=== PATIENT | male | born 1960 | race Two or more races ===

== ENCOUNTER → 2016-02-23 | Day surgery (SDC) | payer OTHER ==
[~2016-02-23] MED LIST: BUPIVACAINE/EPINEPHRINE 0.25% PF 30 ML VIAL ONE; DILA4TAB10 PO; HYDR-3533 PO; KETOROLAC TROMETHAMINE 30 MG/ML (IVP) VIAL IV PUSH ONE; LACTATED RINGER'S 1000 ML INJ 1,000 ML ONE; MEPERIDINE HCL 50 MG/ML VIAL ONE; MIDAZOLAM HCL 2 MG/2 ML VIAL ONE; MS C60TA4 PO; NORT25CA PO; OMEP20TA PO; ONDANSETRON HCL 4 MG/2 ML VIAL IV PUSH ONE; PROPOFOL 200 MG/20 ML AMP IV ONE; ceFAZolin 2 GM PREMIX 50 ML ONE
--- NOTE | 2016-02-27 06:19 | TN ---
cc: DEMETRIO MENDEZ MD DATE OF SURGERY 02/23/2016 PREOPERATIVE DIAGNOSIS Left inguinal hernia. POSTOPERATIVE DIAGNOSIS Left inguinal hernia. PROCEDURE PERFORMED Left inguinal hernia repair laparoscopically with mesh, TEPP. SURGEON Dr. Demetrio Mendez BARYTES GRINDER Yola Sandoval, needed for assistance due to the complex nature of the laparoscopic case. Yola was necessary to insist for camera control and retraction. ANESTHESIA GETA. IV FLUIDS 900 cc. ESTIMATED BLOOD LOSS 5 cc. DRAINS None. COMPLICATIONS None. WOUND CLASSIFICATION Clean. SPECIMENS None. FINDINGS Left inguinal hernia, reducible, indirect. INDICATION The patient is a 55-year-old male who presents with a left inguinal hernia. He was seen in the office for evaluation with concerns due to enlarging size and pain. Therefore decision was made for a laparoscopic left inguinal hernia repair. This was discussed with the patient in detail. He status understanding and would like to proceed. DETAILS OF PROCEDURE The patient was taken to the operating suite, placed in supine position. He was prepped and draped in the usual sterile fashion after induction of general endotracheal anesthesia. Brief time-out done stating correct patient, procedure and surgical site. We were all in agreement with this. Attention directed to the umbilicus. Local anesthetic injected. A small stab/shahnaz incision made with an 11 blade. Further dissection done with a hemostat and [employer]; this was done to the anterior rectus fascia on the left. A small shahnaz incision was made on the anterior fascia. The rectus muscle was identified. Dissection with a hemostat and S-retractor posteriorly to the rectus muscle and the anterior peritoneum. Next, balloon dissector was placed through the rectus posteriorly and anterior to the peritoneal fascia. This was done toward the pubic symphysis. The balloon was then insufflated, 30 pumps under direct visualization with a 10-mm scope. The balloon showed good dissection of the preperitoneal space to the left peritoneal space. The balloon was then removed and stay suture was placed on the anterior fascia with 0 Vicryl. Bryan trocar was then obtained and placed under direct visualization. The balloon was inflated to keep the trocar in place. The preperitoneal space was then insufflated to 11 mm pneumoperitoneum. The scope was reinserted, two other trocars were placed in midline, one suprapubic and one in between this. [place] and [place] graspers were used to completion of the dissection of the properitoneal space. Epigastric vessels were noted anterior and adherent to the abdominal wall. Lateral portion was dissected with the graspers. The hernia sac was identified and tracked along the gonadal vessels and vas deferens and entering the indirect space. This was grasped and retracted and reduced. The cord structures were dissected free from the hernia sac. The hernia sac was then reduced and then placed back into the peritoneal cavity. The gonadal vessels were then elevated and a posterior window was created to these. The pubic symphysis was identified and dissected clear. An adequate landing zone was done in order to place our mesh. An Atrium 6 x 6 mesh was obtained and cut to appropriate size. The mass was then inserted through Bryan trocar. The [place] dissector was used and the [place]y was used to position the mesh in place. Tackers were placed medially and laterally in order to secure the mesh in place and recreate the inguinal ring. Next, the cut portion of the mesh was obtained and placed through the port and fashioned to the first mass with a tacker. Once we were satisfied with this, local anesthetic was then injected. Next, the abdomen was desufflated. Next, trocars were removed. The anterior fascia was reapproximated with a [id number] 0 Vicryl. Next, 4-0 Monocryl was used for subcuticular suture. Sterile dressings were then placed, benzoin and Steri-Strips. The patient tolerated the procedure well. There is no intraoperative complication. The patient was extubated and taken stable to the PACU. FINDINGS Left inguinal hernia, small, indirect, lateral to the epigastric vessels. MD NANETTE Courtney/REGINE /10:44 PM /6:06 AM
== END | disposition home or self-care (01) ==
LOC: ESDC 09:17
PROVIDERS: ATTEND Surgery
DX: K40.90 Unilateral inguinal hernia, without obstruction or gangrene, not specified as recurrent (principal)
CPT/HCPCS: 00840; 49650; J0690; J1885; J2175; J2250; J2405; J3010; J7120; C1727; C1781

== ENCOUNTER → 2016-06-06 | Day surgery (SDC) | payer OTHER ==
[~2016-06-06] MED LIST changes: +BUPIVACAINE LIPOSOME PF 1.3% 20 ML VIAL ONE; +BUPIVACAINE/EPINEPHRINE 0.25% PF 10 ML VIAL ONE; -BUPIVACAINE/EPINEPHRINE 0.25% PF 30 ML VIAL ONE; +LIDOCAINE 1%/EPINEPHrine 1:100,000 SOLN 20 ML VIAL ONE; +MEPERIDINE HCL 25 MG/ML VIAL ONE; -MEPERIDINE HCL 50 MG/ML VIAL ONE; -PROPOFOL 200 MG/20 ML AMP IV ONE; +PROPOFOL 500 MG/50 ML BTL IV ONE; +SODIUM CHLORIDE 0.9% 20 ML VIAL ONE
--- NOTE | 2016-06-06 18:37 | TN ---
cc: DEMETRIO MENDEZ MD DATE OF SURGERY: 06/06/2016 PREOPERATIVE DIAGNOSIS Chronic left groin pain status post laparoscopic inguinal hernia repair. POSTOPERATIVE DIAGNOSIS Chronic left groin pain status post laparoscopic inguinal hernia repair. PROCEDURE PERFORMED 1. Left ilioinguinal neurectomy. 2. Removal of cord lipoma. 3. Left groin exploration. SURGEON Dr. Demetrio Mendez. CLINICAL RESEARCHER Dr. Arriaga. ANESTHESIA GETA. IV FLUIDS See anesthesia sheet. ESTIMATED BLOOD LOSS 5 cc. DRAINS None. COMPLICATIONS None. WOUND CLASSIFICATION Clean. SPECIMENS Ilioinguinal nerve. INDICATION The patient is a 55-year-old male, history of left inguinal hernia, back in February it was repaired laparoscopically. The patient presented with complaints of focal tenderness with radiation in the left groin. He underwent in-office injections with some improvement but pain recurred. Decision was made to explore his groin and ligate his ilioinguinal nerve. This was discussed in detail with the patient. The patient states understanding and agreed and would like to proceed. DETAILS OF PROCEDURE The patient was taken to the operative suite and placed in supine position. He was prepped and draped in the usual sterile fashion after induction of general endotracheal anesthesia. A brief time-out stating correct patient, procedure and surgical site; we were all in agreement with this. Attention directed to the left groin. Landmarks identified, pubic tubercle and ASIS on the left. A transverse 4 cm incision was made over the inguinal ligament. This was done with a 15 blade scalpel; prior to this local anesthetic injected. Further dissection with electro Bovie cautery. Incision through Naomy's fascia down to the external oblique. The external oblique was incised using Metzenbaum scissors to the direction of its fibers to the external ring. The ilioinguinal nerve was identified. With further mobilization of the cord structures, there was noted to be a small cord lipoma. This was mobilized away from the cord structures and ligated with a 2-0 Vicryl tie. Next, further exploration done past the inguinal canal to the pre-marked identified point of pinpoint tenderness as well. Dissection done in the femoral region without evidence of abnormality or abnormal tissue. Structures noted be intact and noted to be anatomic, assessing the superficial and deep inguinal rings noted to be completely intact, there was no evidence of recurrence of any hernia. Upon exploration, given no other abnormalities noted, the ilioinguinal nerve was ligated high from its origin, to the inguinal region of the muscle. Inguinal node was send for pathology. Local anesthetic was injected in the fascia. The wound irrigated. Structures again noted be anatomic and replaced in this way. The external oblique was then closed with 2-0 Vicryl in a running fashion. Naomy's fascia was then closed in a running fashion as well. Then local anesthetic injected. The wound was closed in layers and 3-0 Vicryl was used for the subcuticular layer followed by 4-0 Monocryl for the subcutaneous layer. Steri-Strips and sterile dressings then placed. The patient tolerated procedure well. There were no intraoperative complications. Lap and instrument counts were correct at the end of the procedure. The patient was extubated and taken to the PACU. MD NANETTE Courtney/KATIE /5:34 PM /6:00 PM
== END | disposition home or self-care (01) ==
LOC: ESDC 08:34
PROVIDERS: ATTEND Surgery
DX: R10.32 Left lower quadrant pain (principal); D17.6 Benign lipomatous neoplasm of spermatic cord
CPT/HCPCS: 00860; 55520; 64774; 88305; C9290; J0690; J1885; J2175; J2250; J2405; J3010; J7120